=== PATIENT | male | born 1975 | race Caucasian/White ===

== ENCOUNTER 2024-09-23 03:22 | Emergency (ER) | payer OTHER, SELFPAY ==
[2024-09-23 03:22] VITALS: BMI 27.1
[2024-09-23 03:27] VITALS: BP 158/98; PULSE 98; RESP 18; TEMP 36.8; O2SAT 96
--- NOTE | 2024-09-23 03:38 | EDNOTE_ITS ---
<Statement entered by Caprice Fields MD - 09/23/24 19:44> As co-signing physician, I was present and available for consult prn. I concur with the plan and care as documented by the midlevel provider. Lower Extremity Injury RME/HPI General Chief Complaint: Ankle/Foot Injury Stated Complaint: RIGHT FOOT REDNESS/SWELLING X 1DAY Time Seen by Provider: 09/23/24 03:34 Source: patient Arrival date/time: 09/23/24 03:22 49-year-old male presents emergency department complaining of right foot redness and swelling for 1 day. Patient denies any recent injury, chills, fever, calf pain, nausea vomiting, or any other associated symptom. Mode of arrival: ambulatory Limitations: physical limitation Related Data Home Medications ?Medication ?Instructions ?Recorded ?Confirmed atorvastatin 40 mg tablet (Lipitor) 40 mg PO DAILY 04/10/19 12/23/19 clopidogrel 75 mg tablet 75 mg PO QDAY 04/10/19 12/23/19 famotidine 20 mg tablet (Pepcid) 20 mg PO QDAY 04/10/19 12/23/19 metoprolol tartrate 25 mg tablet 25 mg PO BID 04/10/19 12/23/19 cyclobenzaprine 10 mg tablet 10 mg PO TID PRN Pain 12/23/19 12/23/19 isosorbide mononitrate 30 mg 30 mg PO QDAY 12/23/19 12/23/19 tablet,extended release 24 hr meloxicam 15 mg disintegrating 15 mg PO QDAY 12/23/19 12/23/19 tablet oxycodone 10 mg tablet 10 mg PO QDAY 12/23/19 12/23/19 promethazine-DM 6.25 mg-15 mg/5 mL 5 ml PO Q6H 12/23/19 12/23/19 oral syrup ramipril 5 mg capsule 5 mg PO QDAY 12/23/19 12/23/19 Previous Rx's ?Medication ?Instructions ?Recorded clindamycin HCl 150 mg capsule 450 mg (3 x 150 mg) PO TID 7 days 09/23/24 #63 caps Allergies Allergy/AdvReac Type Severity Reaction Status Date / Time No Known Allergies Allergy Verified 02/09/21 02:31 Review of Systems Review of Systems Systems Reviewed: All systems reviewed, normal except as documented Constitutional Constitutional: Reports system reviewed and no additional complaints, except as documented, Denies body ache(s), Denies chills and Denies fever(s) Eyes Eyes: Reports system reviewed and no additional complaints, except as documented and Denies change in vision ENT Ears, Nose, Mouth, and Throat: Reports system reviewed and no additional complaints, except as documented, Denies disequilibrium, Denies dizziness, Denies sore throat and Denies vertigo Cardiovascular Cardiovascular: Reports system reviewed and no additional complaints, except as documented, Denies chest pain and Denies dyspnea Respiratory Respiratory: Reports system reviewed and no additional complaints, except as documented, Denies chest congestion, Denies cough and Denies dyspnea Gastrointestinal Gastrointestinal: Reports system reviewed and no additional complaints, except as documented, Denies abdominal pain, Denies nausea and Denies vomiting Musculoskeletal Musculoskeletal: Reports system reviewed and no additional complaints, except as documented, Denies abnormal gait and Denies arthralgias Integumentary/Breasts Skin/Breast: Reports system reviewed and no additional complaints, except as documented, Reports erythema, Denies rash and Reports wounds Neurologic Neurologic: Reports system reviewed and no additional complaints, except as documented, Denies abnormal gait, Denies disequilibrium, Denies dizziness and Denies vertigo Past Medical History Past Medical History NEUROLOGIC: Negative Seizures CARDIAC: Positive Cardiac Disorders, Coronary Artery Disease, Congestive Heart Failure and Hypertension RESPIRATORY: Positive Asthma; Negative Chronic Obstructive Pulmonary Disease (COPD) GASTROINTESTINAL: Positive Gastrointestinal Disorders GENITOURINARY: Negative Renal Disease ENDOCRINE: Negative Endocrine Disorders, Diabetes Mellitus Type 1 or Diabetes Mellitus Type 2 HEMATOLOGIC: Negative Sickle Cell Disease OTHER HISTORY: Positive Hospitalization; Negative Blood Transfusions, Blood Transfusion Reaction or Anesthesia Reactions Surgical History SURGICAL: Positive Cardiac Surgery and Open Heart Surgery Social History SMOKING STATUS: Never smoker ED Exam General Limitations: Present physical limitation General appearance: Present alert and in no apparent distress Head Head exam: Present atraumatic Eye Eye exam: Present normal appearance, PERRL and EOMI ENT ENT exam: Present normal exam, normal oropharynx and mucous membranes moist Neck Neck exam: Present normal inspection, full ROM and trachea midline Chest Chest inspection: Present normal inspection and symmetric chest wall rise Respiratory Respiratory exam: Present normal lung sounds bilaterally Cardiovascular Cardiovascular exam: Present regular rate, normal rhythm and normal heart sounds Abdominal Exam Abdominal exam: Present soft and normal bowel sounds Extremities Exam Extremities exam: Present normal inspection and full ROM Expanded Lower Extremity Exam Top foot image: 2 1. Localized erythema with no obvious abscess or open sore Neurovascular/Tendon exam: Present normal capillary refill Gait: observed and limited by pain Back Exam Back exam: Present normal inspection and full ROM Neurological Exam Neurological exam: Present alert, oriented X3 and CN II-XII intact Psychiatric Psychiatric exam: Present normal affect and normal mood Skin Skin exam: Present warm, dry, intact and normal color Course Quality Measures none Orders Category Date Time Status cefTRIAXone [Rocephin] 1,000 mg Med 09/23/24 03:38 Discontinued Lidocaine 1% 20 ml [Xylocaine 1% 20 ML] 2.1 ml IM X1 Vital Signs Vital signs: Vital Signs Temperature 98.2 F 09/23/24 03:27 Pulse Rate 98 09/23/24 03:27 Respiratory Rate 18 09/23/24 03:27 Blood Pressure 158/98 H 09/23/24 03:27 Pulse Oximetry (%) 96 09/23/24 03:27 Oxygen Delivery Method Room Air 09/23/24 03:27 96% room air within normal limits Extremity Injury, Lower MDM Narrative MDM Narrative:: 7-year-old female with mother at bedside presents emergency department complaining of cough and difficulty breathing that started yesterday. Mother reports patient was prescribed azithromycin, albuterol inhaler, and prednisolone yesterday. Mother denies any other associated symptoms. On exam patient does have localized erythema to right lower foot with no obvious open sore or abscess. Likely cellulitis. Patient's right lower extremity is neurovascularly intact. Patient does not meet SIRS criteria and does not appear to be septic. Patient appears nontoxic and is hemodynamically stable. Due to onset being 1 day no x-ray will be ordered at this time. Patient given IM Rocephin and discharged on oral clindamycin with close follow- up in 2 days with primary care provider. Instructed patient to return immediately to the emergency department for any worsening symptoms or as needed. Patient data [facility] records reviewed:: [facility] Clinical information provided by:: patient Social determinants that could affect healthcare access:: none Patient has the following chronic illnesses:: See chart How is presenting disease/condition affected by chronic disease/condition?: u neffected by Evaluation data The following diagnostics were reviewed and interpreted by me:: other (specify) (N/A) Lab and/or radiology exams considered but not ordered:: N/A Interpretation Summary: N/A Medications / Prescriptions Medications or Prescriptions considered but not ordered:: Ordered Medication administrations:: Medication Administration History Discontinued Medications Ceftriaxone Sodium 1,000 mg/ (Lidocaine HCl 2.1 ml) 0 mg IM X1 ONE Stop: 09/23/24 03:39 Given Consultations Consultation(s) initiated? (list below): No Diagnosis Extremity Injury, Lower Differential Diagnosis: other (Dermatitis, cellulitis, osteomyelitis) Most likely diagnosis given after review of the tests above:: Cellulitis Admission Indicated Admission indicated?: not indicated Admission Request Was there a request for admission?: No Disposition Plan Disposition Plan: Discharge Discharge Attestation Discharge Attestation: The patient and all family members were given an opportunity to ask questions and understood the discharge instructions. Discharge instructions specifically effects, indications for sooner follow up or return to the emergency department, and the expected course of current diagnosis. Patient condition: Stable Discharge Plan Plan Patient Disposition: HOME (Self Care) Disposition Comment: Stable Prescriptions/Referrals Prescriptions/Med Rec: New clindamycin HCl 150 mg capsule 450 mg PO TID 7 Days Qty: 63 0RF No Action atorvastatin [Lipitor] 40 mg Tablet 40 mg PO DAILY clopidogrel 75 mg Tablet 75 mg PO QDAY famotidine [Pepcid] 20 mg Tablet 20 mg PO QDAY metoprolol tartrate 25 mg Tablet 25 mg PO BID cyclobenzaprine 10 mg Tablet 10 mg PO TID PRN (Reason: Pain) promethazine-DM 6.25-15 mg/5 mL Syrup 5 ml PO Q6H isosorbide mononitrate 30 mg Tablet Extended Release 24 Hr 30 mg PO QDAY ramipril 5 mg Capsule 5 mg PO QDAY oxycodone 10 mg Tablet 10 mg PO QDAY meloxicam 15 mg Tablet,Disintegrating 15 mg PO QDAY Referrals: Temporary Provider,ED [Primary Care Provider] - In 1 week Problem List Clinical Impression: Cellulitis of foot, right Patient/Caregiver Discharge Instructions Discharge Activity: activity as tolerated Education Materials: Discharge Instructions for Cellulitis, ED Cellulitis Additional Instructions: Take medication as prescribed. Close follow-up with primary care provider in 2 days. Return to emergency department for any worsening signs of infection or worsening symptoms. Print Language: Macedonian Stand Alone Forms: Karen Award Info., Patient Portal Info Letter PA/BOOSTER ASSEMBLER Supervising Physician PA/DARELL Supervising Physician: Dr. Fields
[2024-09-23] MEDS: cefTRIAXone 1,000 MG, LIDOCAINE 1% 20 ML 2.1 ML IM (03:55)
== END 2024-09-23 03:56 | disposition home or self-care (01) ==
LOC: SERX 06:14
PROVIDERS: Emergency Provider Emergency Medicine
DX: L03.115 Cellulitis of right lower limb (principal)
CPT/HCPCS: 96372; 99283; J0696; J3490

== ENCOUNTER 2024-09-24 07:50 | Emergency (ER) | payer OTHER, SELFPAY ==
[2024-09-24 07:51] VITALS: BMI 27.8
[2024-09-24 07:57] VITALS: BP 166/98; PULSE 96; RESP 16; TEMP 37.4; O2SAT 98
--- NOTE | 2024-09-24 08:08 | PD.EDSKIN ---
ED Skin Abcess FB-RME/HPI General Chief complaint: Skin/Abscess/Foreign Body Stated complaint: INFECTION TO RIGHT FOOT FOR 3 DAYS, WORSE Time Seen by Provider: 09/24/24 07:56 Source: patient, RN notes reviewed and old records reviewed Arrival date/time: 09/24/24 07:50 Mode of arrival: ambulatory Limitations: no limitations RME / HPI RME / HPI narrative: 49yom presents to ED for 3-day history of right foot redness. No preceding injury. Patient was evaluated in ED yesterday morning for same complaint; he was prescribed clinda but has not yet filled prescription. Patient wants to make sure infection is not spreading prompting ED visit today. No fever, n/v, red streaking, open wound or drainage reported. Related Data Home Medications ?Medication ?Instructions ?Recorded ?Confirmed atorvastatin 40 mg tablet (Lipitor) 40 mg PO DAILY 04/10/19 12/23/19 clopidogrel 75 mg tablet 75 mg PO QDAY 04/10/19 12/23/19 famotidine 20 mg tablet (Pepcid) 20 mg PO QDAY 04/10/19 12/23/19 metoprolol tartrate 25 mg tablet 25 mg PO BID 04/10/19 12/23/19 cyclobenzaprine 10 mg tablet 10 mg PO TID PRN Pain 12/23/19 12/23/19 isosorbide mononitrate 30 mg 30 mg PO QDAY 12/23/19 12/23/19 tablet,extended release 24 hr meloxicam 15 mg disintegrating 15 mg PO QDAY 12/23/19 12/23/19 tablet oxycodone 10 mg tablet 10 mg PO QDAY 12/23/19 12/23/19 promethazine-DM 6.25 mg-15 mg/5 mL 5 ml PO Q6H 12/23/19 12/23/19 oral syrup ramipril 5 mg capsule 5 mg PO QDAY 12/23/19 12/23/19 Previous Rx's ?Medication ?Instructions ?Recorded clindamycin HCl 150 mg capsule 450 mg (3 x 150 mg) PO TID 7 days 09/23/24 #63 caps Allergies Allergy/AdvReac Type Severity Reaction Status Date / Time No Known Allergies Allergy Verified 09/24/24 07:53 Review of Systems Review of Systems Systems Reviewed: All systems reviewed, normal except as documented Constitutional Constitutional: Denies chills and Denies fever(s) Gastrointestinal Gastrointestinal: Denies nausea and Denies vomiting Musculoskeletal Musculoskeletal: Denies arthralgias, Denies joint swelling, Denies numbness and Denies tingling Integumentary/Breasts Skin/Breast: Reports erythema Neurologic Neurologic: Denies numbness and Denies tingling Past Medical History Past Medical History CARDIAC: Positive Coronary Artery Disease and Hypertension Surgical History SURGICAL: Positive Open Heart Surgery Social History SMOKING STATUS: Never smoker SUBSTANCE USE: does not use ALCOHOL: Never ED Exam General Limitations: Present no limitations General appearance: Present alert and in no apparent distress Head Head exam: Present atraumatic and normocephalic Eye Eye exam: Present normal appearance, PERRL and EOMI ENT ENT exam: Present normal exam and mucous membranes moist Neck Neck exam: Present normal inspection and full ROM Chest Chest inspection: Present normal inspection and symmetric chest wall rise Respiratory Respiratory exam: Present normal lung sounds bilaterally; Absent respiratory distress Cardiovascular Cardiovascular exam: Present regular rate and normal rhythm Extremities Exam Extremities exam: Present normal inspection, full ROM and normal capillary refill; Absent tenderness, pedal edema or joint swelling Neurological Exam Neurological exam: Present alert and oriented X3 Psychiatric Psychiatric exam: Present normal affect and normal mood Skin Skin exam: Present other (Faint erythema to dorsal aspect of distal right foot, no significant swelling. No fluctuance, induration or drainage) Course Quality Measures none Vital Signs Vital signs: Vital Signs Temperature 99.3 F 09/24/24 07:57 Pulse Rate 96 09/24/24 07:57 Respiratory Rate 16 09/24/24 07:57 Blood Pressure 166/98 H 09/24/24 07:57 Pulse Oximetry (%) 98 09/24/24 07:57 Oxygen Delivery Method Room Air 09/24/24 07:57 Skin / Abscess / Foreign Body MDM Narrative MDM Narrative:: 49yom presents to ED for 3-day history of right foot redness. No preceding injury. Patient was evaluated in ED yesterday morning for same complaint; he was prescribed clinda but has not yet filled prescription. Patient wants to make sure infection is not spreading prompting ED visit today. No fever, n/v, red streaking, open wound or drainage reported. Exam findings c/w mild cellulitis. No evidence of abscess. No open wound. Patient is nontoxic-appearing, afebrile, vitals are stable. Instructed to miner pick antibiotic at pharmacy and start as soon as possible. Motrin/Tylenol prn pain. Stable for discharge, RTED precautions given. Patient data External records reviewed:: [facility] previous records (09/23/2024 ED visit for foot cellulitis) Clinical information provided by:: patient Social determinants that could affect healthcare access:: other (specify) (Poor access to healthcare) Patient has the following chronic illnesses:: Hypertension, CAD How is presenting disease/condition affected by chronic disease/condition?: uneffected by Evaluation data The following diagnostics were reviewed and interpreted by me:: other (specify) (None) Lab and/or radiology exams considered but not ordered:: None Interpretation Summary: na Medications / Prescriptions Medications or Prescriptions considered but not ordered:: None Medication administrations:: None Consultations Consultation(s) initiated? (list below): No Diagnosis Skin/Abscess Differential Diagnosis: abscess of skin or subcutaneous tissue, cellulitis, eczema, insect bites and contact dermatitis Most likely diagnosis given after review of the tests above:: Cellulitis Admission Indicated Admission indicated?: not indicated Admission Request Was there a request for admission?: No Disposition Plan Disposition Plan: Discharge Discharge Attestation Discharge Attestation: The patient and all family members were given an opportunity to ask questions and understood the discharge instructions. Discharge instructions specifically effects, indications for sooner follow up or return to the emergency department, and the expected course of current diagnosis. Patient condition: Stable Discharge Plan Plan Patient Disposition: HOME (Self Care) Patient condition on transfer: Stable Prescriptions/Referrals Prescriptions/Med Rec: No Action atorvastatin [Lipitor] 40 mg Tablet 40 mg PO DAILY clopidogrel 75 mg Tablet 75 mg PO QDAY famotidine [Pepcid] 20 mg Tablet 20 mg PO QDAY metoprolol tartrate 25 mg Tablet 25 mg PO BID cyclobenzaprine 10 mg Tablet 10 mg PO TID PRN (Reason: Pain) promethazine-DM 6.25-15 mg/5 mL Syrup 5 ml PO Q6H isosorbide mononitrate 30 mg Tablet Extended Release 24 Hr 30 mg PO QDAY ramipril 5 mg Capsule 5 mg PO QDAY oxycodone 10 mg Tablet 10 mg PO QDAY meloxicam 15 mg Tablet,Disintegrating 15 mg PO QDAY clindamycin HCl 150 mg capsule 450 mg PO TID 7 Days Qty: 63 0RF Problem List Clinical Impression: Cellulitis of foot, right Patient/Caregiver Discharge Instructions Education Materials: ED Cellulitis Additional Instructions: upholstery restorer your prescription for clindamycin at the pharmacy, start antibiotic as soon as possible. Print Language: Haitian Stand Alone Forms: Karen Award Info., Patient Portal Info Letter PA/GENERAL MERCHANDISE SALESPERSON Supervising Physician PA/GENERAL MERCHANDISE SALESPERSON Supervising Physician: Kathia
== END 2024-09-24 08:22 | disposition home or self-care (01) ==
LOC: SERX 08:15
PROVIDERS: Emergency Provider Emergency Medicine; PCP Family Medicine; Referring Provider Emergency Medicine
DX: L03.115 Cellulitis of right lower limb (principal)
CPT/HCPCS: 99281